=== PATIENT | female | born 1955 | race Caucasian/White ===

== ENCOUNTER 2017-03-21 13:28 | Outpatient (CLI) | payer BC ==
[2017-03-21 13:46] LABS: Basophils % (Auto) 0.8 % (0.0-1.8); Eosinophils % (Auto) 1.1 % (0.0-4.3); Hematocrit 35.8 % (30.3-42.9); Hemoglobin 11.9 gm/dl (10.1-14.3); Mean Corpuscular HGB Conc 33 % (30-34); Mean Corpuscular Hemoglobin 31 pg (28-32); Mean Corpuscular Volume 93 fl (79-97); Platelet Count 297 K/mm3 (140-440); Red Blood Count 3.84 M/mm3 (3.65-5.03); Red Cell Distribution Width 13.3 % (13.2-15.2)
== END 2017-03-21 13:29 | disposition home or self-care (01) ==
LOC: LAB 13:28
PROVIDERS: ATTEND Surgery
DX: D72.829 Elevated white blood cell count, unspecified (principal)
CPT/HCPCS: 36415; 85025

== ENCOUNTER 2017-03-27 07:51 | Outpatient (CLI) | payer BC ==
--- NOTE | 2017-03-27 09:46 | Mammography Report ---
BILATERAL MAMMOGRAM with CAD: HISTORY: Cancer screening. Comparison study is dated March 15, 2016. FINDINGS: The breast tissue is heterogeneously dense, which could obscure detection of small masses (approximately 50%-75% glandular). No mass, distortion, suspicious calcification, or skin change is seen. IMPRESSION: Negative mammogram. There is no mammographic evidence of malignancy. RECOMMENDATION: Follow-up per ACS guidelines. BI-RADS CATEGORY: 1 = Negative ACR BI-RADS MAMMOGRAPHIC CODES: 0 = Needs additional imaging evaluation; 1 = Negative; 2 = Benign; 3 = Probably benign; 4 = Suspicious; 5 = Malignant; 6 = Known biopsy-proven malignancy COMMENT: 1. Dense breast tissue, i.e., adenosis, fibrocystic changes, etc., may obscure an underlying neoplasm. 2. Approximately 10% of cancers are not detected with mammography. 3. A negative mammography report should not delay biopsy if a clinically suspicious mass is present. COMMENT: Patient follow-up letters are generated in [employer].
--- NOTE | 2017-03-27 09:48 | Mammography Report ---
BONE DENSITY STUDY: DEFINITIONS: BMD = Bone Mineral Density T-score = BMD related to mean peak bone mass of young adult (mean expressed in Standard Deviation) Z-score = Age matched BMD expressed in SD World Health Organization (WHO) Diagnostic Criteria Normal T-score > -1 SD Osteopenia T-score between -1 and -2.4 SD Osteoporosis T-score -2.5 SD or below FINDINGS: The weighted average BMD of lumbar spine L1-L4 is 0.910 with a T-score of -1.2. The weighted average BMD of hip is 0.829 with a T-score of -0.9. IMPRESSION: The patient's T-score is diagnostic for osteopenia and average relative risk for fracture. NOTE: BMD is not the only risk factor for fracture; also consider factors such as the patient's age, risk of falling, previous osteoporotic fracture, family history of osteoporotic fractures, current smoker, and low body weight. Bright's triangle is a region of interest in femur, predominantly of trabecular bone. It is not a true anatomic site, and ISCD does not recommend its use clinically.
== END 2017-03-27 07:52 | disposition home or self-care (01) ==
LOC: MAMMO 07:51
PROVIDERS: ATTEND Internal Medicine
DX: Z12.31 Encounter for screening mammogram for malignant neoplasm of breast (principal); M85.88 Other specified disorders of bone density and structure, other site
CPT/HCPCS: 77080; G0202; 77067

== ENCOUNTER 2018-04-23 10:07 | Day surgery (SDC) | payer BC ==
[2018-04-23] MEDS ORDERED: WATER FOR IRRIG STERILE IR ONE (10:38)
[2018-04-23] MEDS ORDERED: WATER FOR IRRIG STERILE ONE (10:38)
[2018-04-23] MEDS: NACL 0.9% 1000 ML 1,000 ML IV SCH ×2 (11:12→14:00)
--- NOTE | 2018-04-23 11:25 | Anesthesia Day of Surgery ---
Anesthesia Day of Surgery - Day of Surgery Patient Examined: Yes Patient H&P Reviewed: Yes Patient is NPO: Yes
--- NOTE | 2018-04-23 11:25 | Anesthesia Consultation ---
Anesthesia Consult and Med Hx Date of service: 04/23/18 - Airway Anesthetic Teeth Evaluation: Caps, Partials (upper/lower) ROM Head & Neck: Adequate Mental/Hyoid Distance: Adequate Mallampati Class: Class II Intubation Access Assessment: Probably Good - Pulmonary Exam CTA: Yes - Cardiac Exam Cardiac Exam: RRR - Pre-Operative Health Status ASA Pre-Surgery Classification: ASA2 - Pre-Anesthesia Comment Pre-Anesthesia Comments: rheumatoid arthiritis - Pulmonary Hx Smoking: Yes - Other Systems Hx Alcohol Use: Yes (2 drinks/day)
[2018-04-23] MEDS ORDERED: XYLOCAINE 1% 20 mL ONE (13:08)
[2018-04-23] MEDS ORDERED: DIPRIVAN 10 MG/ML IV ONE ×2 (13:08)
--- NOTE | 2018-04-23 13:49 | Short Stay Summary ---
Short Stay Documentation Date of service: 04/23/18 - History H&P: obtained from office - Allergies and Medications Current Medications: Allergies Penicillins Allergy (Verified 04/23/18 11:13) Swelling latex Adverse Reaction (Verified 04/23/18 11:13) Itching,SWELLING pentazocine lactate [From Stacey] Adverse Reaction (Verified 04/23/18 11:13) Nausea,VOMITING Active Medications Sodium Chloride (Nacl 0.9% 1000 Ml) 1,000 mls @ 50 mls/hr IV DIRECT MARY Last Admin: 04/23/18 11:12 Dose: 50 mls/hr - Brief post op/procedure progress note Date of procedure: 04/23/18 Pre-op diagnosis: Hx polyps Post-op diagnosis: same (cecal polyp) Procedure: Colonoscopy with hot snare polypectomy Anesthesia: MAC Findings: 1. 7 mm, flat sessile cecal polyp, snared off piecemeal. 2. Otherwise normal colonoscopy, with torsion-induced mucosal damage in cecum. Surgeon: LILIAN SALAZAR Estimated blood loss: minimal Pathology: list (1. Cecal polyp) Specimen disposition: to lab Condition: stable - Disposition Condition at discharge: Good Disposition: DC-01 TO HOME OR SELFCARE Short Stay Discharge Plan Diet: regular, low salt Follow up with: CARL XIE MD [Primary Care Provider] - 7 Days
[2018-04-23 14:16] VITALS: BP 147/89
--- NOTE | 2018-04-23 14:49 | Operative Report ---
PROCEDURE: Colonoscopy with hot snare polypectomy. PREOPERATIVE DIAGNOSIS: History of colon polyps. POSTOPERATIVE DIAGNOSIS: Cecal polyp. SEDATION: MAC by Anesthesia. HISTORY: The patient presents for surveillance colonoscopy with a prior history of colon polyps. Procedure indications, risks, and benefits were explained and consent was obtained. DESCRIPTION OF PROCEDURE: The patient was placed in left lateral decubitus position and sedated. [employer] video colonoscope was passed through the rectum after digital examination and passed with minimal difficulty to the cecum, which was identified by the ileocecal valve and the appendiceal orifice. Scope was then gradually withdrawn with close inspection of the mucosa. FINDINGS: 1. Seven to 8 mm flat cecal polyp -- removed in 2 pieces with snare polypectomy. 2. Torsion-induced mucosal damage noted in the cecum, due to tortuous sigmoid colon. 3. Remainder of visualized colonic mucosa is normal appearing with no evidence of mass lesions, vascular lesions or inflammation. The patient tolerated the procedure well without immediate complications. IMPRESSION: 1. Cecal polyp -- removed with snare polypectomy. 2. Tortuous sigmoid colon with torsion-induced mucosal damage to cecum. 3. Otherwise normal examination. PLAN: 1. Follow up biopsies. 2. Repeat colonoscopy in 5 years. JOB# [id number] HRC/NTS
== END 2018-04-23 10:08 | disposition home or self-care (01) ==
LOC: GIO 10:07
PROVIDERS: ATTEND Internal Medicine Gastroenterology
DX: Z12.11 Encounter for screening for malignant neoplasm of colon (principal); D12.0 Benign neoplasm of cecum; K63.89 Other specified diseases of intestine; M06.9 Rheumatoid arthritis, unspecified; F17.200 Nicotine dependence, unspecified, uncomplicated; Z98.890 Other specified postprocedural states; Z88.0 Allergy status to penicillin; Z91.040 Latex allergy status; Z91.018 Allergy to other foods; Z86.010 Personal history of colon polyps; Z90.710 Acquired absence of both cervix and uterus
CPT/HCPCS: 45385; 88305; J2704; J7030

== ENCOUNTER 2018-05-22 07:07 | Day surgery (SDC) | payer BC ==
[~2018-05-22 07:07] MED LIST: MARCAINE 0.25% INFILTRATI ONE; XYLOCAINE 1% 20 mL ONE
[2018-05-22] MEDS ORDERED: LACTATED RINGERS 1,000 ML IV SCH (08:00)
[2018-05-22] MEDS ORDERED: VERSED IV NR (08:00)
[2018-05-22] MEDS ORDERED: MARCAINE 0.25% INFILTRATI ONE ×2 (08:11)
[2018-05-22] MEDS ORDERED: XYLOCAINE 1% 20 mL INFILTRATI ONE ×2 (08:11)
[2018-05-22] MEDS ORDERED: NACL 0.9% IR ONE (08:11)
[2018-05-22 08:44] VITALS: BP 150/87
--- NOTE | 2018-05-22 08:58 | Operative Report ---
Operative Report Operative Report: Date of Operation: 05/22/18 preOperative diagnosis: Left dorsal forearm lesion postOperative diagnosis: Same as above Procedure performed: Excision of left forearm lesion with complex wound closure Surgeon:Joyce Rascon DO Anesthesia: local Findings: Hyperkeratotic left forearm lesion measuring approximately 1 x 1 cm. Estimated blood loss: <5 mL Specimen: Left forearm lesion, sutures marking #1 short superior, #2 long lateral, #3 single stitch posterior/deep margin Complications: None Disposition: Stable to home Indication: Patient is a 62-year-old female who presented to the office for evaluation of a left forearm lesion. The lesion had been present for many years however recently had started to become pruritic and irritating. There was concern with these new symptoms and therefore the patient was set up for an elective excision. After all risks were discussed and questions answered, consent was signed in the office. Procedure in detail: Patient was identified in the preoperative area, taken back to the minor procedure room, placed on the stretcher in supine position. The left forearm was prepped and draped in usual sterile fashion and a timeout was performed. Local anesthetic, a 50/50 mixture of 0.25 Marcaine and 1% lidocaine, was injected into the skin at the intended incision site. An elliptical incision was made in the skin around the lesion using a 15 blade. Dissection was carried down through the skin using electrocautery. The entire lesion and deep subcutaneous tissue with approximately 1 cm margins was excised. This was marked with sutures marking #1 short superior margin, #2 long lateral margin, #3 single stitch posterior/deep margin and was then passed off the table as a specimen. The wound was then irrigated and hemostasis achieved with electrocautery. Skin flaps were raised in order to close the wound without any tension. Once hemostasis was ensured, the deep dermal layer was closed using interrupted 3-0 Vicryl sutures. The skin was closed with 4-0 Monocryl subcuticular stitch and skin glue. At the end of the case, all sponge, instrument, sharp counts were correct 2. The patient was discharged home in stable condition.
== END 2018-05-22 08:39 | disposition home or self-care (01) ==
LOC: OR 07:07
PROVIDERS: ATTEND Surgery
DX: L57.0 Actinic keratosis (principal); M06.9 Rheumatoid arthritis, unspecified; F17.210 Nicotine dependence, cigarettes, uncomplicated; Z98.891 History of uterine scar from previous surgery; Z90.710 Acquired absence of both cervix and uterus; Z98.890 Other specified postprocedural states
CPT/HCPCS: 88305

== ENCOUNTER 2019-03-24 09:59 | Outpatient (CLI) | payer BC ==
--- NOTE | 2019-03-24 12:18 | Mammography Report ---
BILATERAL DIGITAL SCREENING MAMMOGRAM with CAD: 03/24/19 09:59:00 CLINICAL: Routine screening. COMPARISON:03/27/17 and 03/15/16 FINDINGS: The breasts are heterogeneously dense, which may obscure small masses. A left asymmetry on the CC view requires additional imaging.No architectural distortion or suspicious calcifications.The right breast is negative. IMPRESSION: Left asymmetry requiring further workup. BI-RADS CATEGORY: 0 -- Additional Imaging Evaluation Required RECOMMENDATION: Recall for left lateralmedial and spot compression CC views and left breast ultrasound if needed. COMMENT: 1. Dense breast tissue, i.e., adenosis, fibrocystic changes, etc., may obscure an underlying neoplasm. 2. Approximately 10% of cancers are not detected with mammography. 3. A negative mammography report should not delay biopsy if a clinically suspicious mass is present. COMMENT: Patient follow-up letters are generated via our [employer] application.
== END 2019-03-24 10:00 | disposition home or self-care (01) ==
LOC: MAMMO 09:59
PROVIDERS: ATTEND Internal Medicine
DX: Z12.31 Encounter for screening mammogram for malignant neoplasm of breast (principal)
CPT/HCPCS: 77067

== ENCOUNTER 2019-04-22 08:12 | Outpatient (CLI) | payer BC ==
--- NOTE | 2019-04-22 08:55 | Mammography Report ---
LEFT DIGITAL DIAGNOSTIC MAMMOGRAM : 04/22/19 08:12:00 CLINICAL: Recalled for asymmetry. COMPARISON:03/24/19 screening FINDINGS: Additional left mammographic views were performed and are negative. IMPRESSION: No mammographic evidence of malignancy. BI-RADS CATEGORY: 1 -- Negative RECOMMENDATION: Routine mammographic screening in one year. COMMENT: 1. Dense breast tissue, i.e., adenosis, fibrocystic changes, etc., may obscure an underlying neoplasm. 2. Approximately 10% of cancers are not detected with mammography. 3. A negative mammography report should not delay biopsy if a clinically suspicious mass is present. COMMENT: Patient follow-up letters are generated via our [employer] application.
== END 2019-04-22 08:13 | disposition home or self-care (01) ==
LOC: SPVWC 08:12
PROVIDERS: ATTEND Internal Medicine
DX: R92.2 Inconclusive mammogram (principal); Z90.710 Acquired absence of both cervix and uterus

== ENCOUNTER 2019-07-29 11:55 | Outpatient (CLI) | payer BC ==
[2019-07-29 12:20] LABS: Basophils # (Auto) 0.1 K/mm3 (0.0-0.1); Basophils % (Auto) 0.6 % (0.0-1.8); Eosinophils # (Auto) 0.1 K/mm3 (0.0-0.4); Eosinophils % (Auto) 0.5 % (0.0-4.3); Hematocrit 26.1 % (30.3-42.9); Lymphocytes # (Auto) 2.1 K/mm3 (1.2-5.4); Lymphocytes % (Auto) 21.1 % (13.4-35.0); Mean Corpuscular HGB Conc 35 % (30-34); Mean Corpuscular Volume 95 fl (79-97); Monocytes # (Auto) 0.7 K/mm3 (0.0-0.8); Monocytes % (Auto) 7.2 % (0.0-7.3); Platelet Count 234 K/mm3 (140-440); Red Blood Count 2.76 M/mm3 (3.65-5.03); Red Cell Distribution Width 13.9 % (13.2-15.2)
[2019-07-29 12:49] LABS: Alanine Aminotransferase 32 units/L (7-56); Albumin 4.1 g/dL (3.9-5); BUN/Creatinine Ratio 17; Blood Urea Nitrogen 10 mg/dL (7-17); Calcium 8.5 mg/dL (8.4-10.2); Hemolysis Index 0
== END 2019-07-29 11:56 | disposition home or self-care (01) ==
LOC: LAB 11:55
PROVIDERS: ATTEND Internal Medicine Gastroenterology
DX: K92.1 Melena (principal)
CPT/HCPCS: 36415; 80053; 85025

== ENCOUNTER 2019-08-03 07:24 | Day surgery (SDC) | payer BC ==
[~2019-08-03 07:24] MED LIST changes: -MARCAINE 0.25% INFILTRATI ONE; +SODIUM CHLORIDE 0.9% 1000 ML 1,000 ML IV SCH; -XYLOCAINE 1% 20 mL ONE
--- NOTE | 2019-08-03 07:52 | Anesthesia Consultation ---
Anesthesia Consult and Med Hx Date of service: 08/03/19 - Airway Anesthetic Teeth Evaluation: Partials ROM Head & Neck: Adequate Mental/Hyoid Distance: Adequate Mallampati Class: Class II Intubation Access Assessment: Probably Good - Pre-Operative Health Status Proposed Anesthetic Plan: MAC - Pulmonary Hx Smoking: Yes Hx Asthma: No Hx Respiratory Symptoms: No SOB: No COPD: No Home Oxygen Therapy: No Hx Pneumonia: No Hx Sleep Apnea: No - Cardiovascular System Hx Hypertension: No Hx Coronary Artery Disease: No Hx Heart Attack/AMI: No Hx Angina: No Hx Percutaneous Transluminal Coronary Angioplasty (PTCA): No Hx Cardia Arrhythmia: No Hx Pacemaker: No Hx Internal Defibrillator: No Hx Valvular Heart Disease: No Hx Heart Murmur: No Hx Peripheral Vascular Disease: No - Central Nervous System Hx Neuromuscular Disorder: No Hx Seizures: No CVA: No Hx Back Pain: No Hx Psychiatric Problems: No - Gastrointestinal Hx Ulcer: No Hx Gastroesophageal Reflux Disease: No - Endocrine Hx Renal Disease: No Hx End Stage Renal Disease: No Hx Cirrhosis: No Hx Liver Disease: No Hx Insulin Dependent Diabetes: No Hx Non-Insulin Dependent Diabetes: No Hx Thyroid Disease: No Hx Hypothyroidism: No Hx Hyperthyroidism: No - Hematic Hx Anemia: Yes Hx Sickle Cell Disease: No - Other Systems Hx Alcohol Use: Yes (Almost every day) Hx Substance Use: No Hx Cancer: No Hx Obesity: No
--- NOTE | 2019-08-03 07:53 | Anesthesia Day of Surgery ---
Anesthesia Day of Surgery - Day of Surgery Patient Examined: Yes Patient H&P Reviewed: Yes Patient is NPO: No Beta Blockers: No
[2019-08-03] MEDS ORDERED: LIDOCAINE MPF (2%) 20 MG/1 ML VIAL 5 ML ONE (08:30)
[2019-08-03] MEDS ORDERED: PROPOFOL 200 MG/20 ML VIAL IV ONE (09:14)
[2019-08-03] MEDS ORDERED: WATER FOR IRRIG STERILE 250 ML BOTTLE IR ONE (09:42)
--- NOTE | 2019-08-03 09:42 | Short Stay Summary ---
Short Stay Documentation Date of service: 08/03/19 - History H&P: obtained from office - Allergies and Medications Current Medications: Allergies Penicillins Allergy (Verified 05/20/18 16:01) Swelling latex Adverse Reaction (Verified 05/20/18 16:01) Itching,SWELLING pentazocine lactate [From Stacey] Adverse Reaction (Verified 05/20/18 16:01) Nausea,VOMITING Home Medications Medication Instructions Recorded Confirmed Last Taken Type Ascorbic Acid [Vitamin C] 1,000 mg PO DAILY 05/22/18 08/03/19 08/02/19 History Leflunomide 1 tab PO DAILY 05/22/18 08/02/19 05/21/18 History Multivit/Folic Acid/Vit K1 1 each PO DAILY 05/22/18 08/03/19 08/02/19 History [One-A-Day Women's 50 Plus Tab] [facility]-3 Fatty Acids/Fish Oil [Fish 1 each PO DAILY 05/22/18 08/03/19 08/02/19 History Oil 1,000 mg Softgel] Tumeric Curcumin 1 tab PO DAILY 05/22/18 08/03/19 08/02/19 History Vitamin B Complex Vit C No.4 150 mg PO DAILY 05/22/18 08/03/19 08/02/19 History [Super B Complex] predniSONE [Deltasone] 1 tab PO DAILY 05/22/18 08/03/19 08/02/19 History Gabapentin [Neurontin] 1 tab PO TID 08/02/19 08/03/19 08/02/19 History Omeprazole 40 mg PO DAILY 08/02/19 08/03/19 08/02/19 History Vitamin D3 Complete Caplet 1 tab PO DAILY 08/02/19 08/03/19 08/02/19 History Active Medications Sodium Chloride (Nacl 0.9% 1000 Ml) 1,000 mls @ 50 mls/hr IV DIRECT MARY Last Admin: 08/03/19 08:26 Dose: 50 mls/hr Documented by: - Brief post op/procedure progress note Date of procedure: 08/03/19 Procedure: see dictation Findings: see dictation Pathology: list (biopsies of antrum for h.pylori) Specimen disposition: to lab Condition: stable - Disposition Condition at discharge: Good Disposition: DC-01 TO HOME OR SELFCARE - Discharge Diagnoses (1) Melena Status: Acute (2) Anemia due to blood loss, chronic Status: Acute Short Stay Discharge Plan Activity: other (no driving for 24 hours. stop smoking, no NSAIDS.) Weight Bearing Status: Full Weight Bearing Diet: regular Follow up with: CARL XIE MD [Primary Care Provider] - 7 Days
--- NOTE | 2019-08-03 09:45 | Operative Report ---
Operative Report Operative Report: Date of procedure: 08/03/2019 Procedure: Esophagogastroduodenoscopy with antral biopsies for H. pylori testing Preprocedure diagnosis: Recent melena and anemia consistent with blood loss. Post procedure diagnosis: Pyloric channel ulcer crater Endoscopist: Dr. Corona Anesthesia: Monitored anesthesia care per anesthesia department Medications: Propofol by anesthesia Estimated blood loss: 0 After careful discussion of the nature and purpose of the procedure as well as details the technique risks benefits and alternatives consent was obtained. The patient was placed in the left lateral decubitus position and medicated per anesthesia. The tip of the [employer] EQ 570 video scope was passed per orum under direct vision into the esophagus and advanced into the stomach and descending duodenum. The descending duodenum and the duodenal bulb were symmetrical and normal. There was a 1 cm ulcer crater in the pyloric channel. The scope was withdrawn into the stomach and the stomach then gently insufflated with air. The antrum was normal. Biopsies were taken in the antrum for H. pylori testing. The stomach was further insufflated and the scope was then retroflexed and partially withdrawn. The cardia, fundus, and body of the stomach were within normal limits and easily distensible.The scope was then withdrawn in the forward position. The esophagogastric junction was at 37 cm. The esophageal body was normal throughout. The procedure was was well tolerated and the patient was observed in recovery. Impressions: 1 cm ulcer crater in the pyloric channel consistent with the source of recent bleeding. Plan: Await pathology. Continue PPI therapy. The patient will call the office in 1 week to discuss the findings and further management. Avoidance of NSAIDs. Discontinue tobacco use. Electronically signed: Chau Corona MD
[2019-08-03 10:19] VITALS: BP 117/60
--- NOTE | 2019-08-04 13:19 | Post Anesthesia Evaluation ---
- Post Anesthesia Evaluation Patient Participated: Yes Airway Patent: Yes Stable Respiratory Function: Yes Nausea/Vomiting: No Temp > 96.8F: Yes Pain Manageable: Yes Adequeate Hydration: Yes Anesthesia Complications: No Block Receding Appropriately: Not Applicable Patient on Ventilator: No
== END 2019-08-03 07:25 | disposition home or self-care (01) ==
LOC: GIO 07:24
PROVIDERS: ATTEND Internal Medicine Gastroenterology
DX: D50.0 Iron deficiency anemia secondary to blood loss (chronic) (principal); K29.50 Unspecified chronic gastritis without bleeding; B96.81 Helicobacter pylori [H. pylori] as the cause of diseases classified elsewhere; K92.1 Melena; F17.210 Nicotine dependence, cigarettes, uncomplicated; Z90.710 Acquired absence of both cervix and uterus; Z91.040 Latex allergy status; Z88.0 Allergy status to penicillin; Z88.8 Allergy status to other drugs, medicaments and biological substances; Z79.899 Other long term (current) drug therapy; Z98.891 History of uterine scar from previous surgery; Z96.641 Presence of right artificial hip joint; Z72.89 Other problems related to lifestyle; Z98.890 Other specified postprocedural states
CPT/HCPCS: 43239; 88305; 88342; J2704; J7030

== ENCOUNTER 2019-09-09 13:33 | Outpatient (CLI) | payer BC | END 2019-09-09 13:34 | disposition home or self-care (01) | LOC: LAB 13:33 | PROVIDERS: ATTEND Internal Medicine Gastroenterology | DX: R19.7 Diarrhea, unspecified (principal); Z88.0 Allergy status to penicillin; Z88.8 Allergy status to other drugs, medicaments and biological substances; Z91.040 Latex allergy status | CPT/HCPCS: 87045; 87493 ==

== ENCOUNTER 2019-12-13 12:28 | Outpatient (CLI) | payer BC ==
[2019-12-13 12:48] LABS: Hematocrit 39.3 % (30.3-42.9); Hemoglobin 13.2 gm/dl (10.1-14.3); Mean Corpuscular HGB Conc 34 % (30-34); Mean Corpuscular Volume 93 fl (79-97); Platelet Count 320 K/mm3 (140-440); Red Blood Count 4.22 M/mm3 (3.65-5.03); Red Cell Distribution Width 15.8 % (13.2-15.2)
[2019-12-13 13:24] LABS: % Iron Saturation 20.54 %
== END 2019-12-13 12:29 | disposition home or self-care (01) ==
LOC: XRAY 12:28
PROVIDERS: ATTEND Internal Medicine Gastroenterology
DX: K29.70 Gastritis, unspecified, without bleeding (principal); K25.9 Gastric ulcer, unspecified as acute or chronic, without hemorrhage or perforation; B96.81 Helicobacter pylori [H. pylori] as the cause of diseases classified elsewhere; D64.9 Anemia, unspecified
CPT/HCPCS: 36415; 82607; 82728; 83550; 85027; 87338

== ENCOUNTER 2020-06-27 06:49 | Day surgery (SDC) | payer BC ==
--- NOTE | 2020-06-27 08:48 | Anesthesia Consultation ---
Anesthesia Consult and Med Hx Date of service: 06/27/20 - Airway Anesthetic Teeth Evaluation: Good, Partials ROM Head & Neck: Adequate Mental/Hyoid Distance: Adequate Mallampati Class: Class I - Pulmonary Exam CTA: Yes - Pre-Operative Health Status ASA Pre-Surgery Classification: ASA2 Proposed Anesthetic Plan: MAC - Pulmonary Hx Smoking: Yes Hx Asthma: No Hx Respiratory Symptoms: No SOB: No COPD: No Hx Pneumonia: No Hx Sleep Apnea: No - Cardiovascular System Hx Hypertension: No Hx Coronary Artery Disease: No Hx Heart Attack/AMI: No Hx Angina: No Hx Percutaneous Transluminal Coronary Angioplasty (PTCA): No Hx Cardia Arrhythmia: No Hx Pacemaker: No Hx Internal Defibrillator: No Hx Valvular Heart Disease: No Hx Heart Murmur: No Hx Peripheral Vascular Disease: No - Central Nervous System Hx Neuromuscular Disorder: No Hx Seizures: No CVA: No Hx Back Pain: No Hx Psychiatric Problems: No - Gastrointestinal Hx Ulcer: No Hx Gastroesophageal Reflux Disease: No - Endocrine Hx Renal Disease: No Hx End Stage Renal Disease: No Hx Cirrhosis: No Hx Liver Disease: No Hx Insulin Dependent Diabetes: No Hx Non-Insulin Dependent Diabetes: No Hx Thyroid Disease: No Hx Hypothyroidism: No Hx Hyperthyroidism: No - Hematic Hx Anemia: Yes Hx Sickle Cell Disease: No - Other Systems Hx Alcohol Use: Yes (Almost every day) Hx Substance Use: No Hx Cancer: No Hx Obesity: No - Additional Comments Anesthesia Medical History Comments: Patient denies previous anesthesia complications
--- NOTE | 2020-06-27 08:49 | Anesthesia Day of Surgery ---
Anesthesia Day of Surgery - Day of Surgery Patient Examined: Yes Patient H&P Reviewed: Yes Patient is NPO: Yes Beta Blockers: No Cardiac Clearance: No Pulmonary Clearance: No Ricci's Test: N/A
[2020-06-27] MEDS ORDERED: propofoL 200 MG/20 ML VIAL IV ONE ×2 (08:52)
[2020-06-27] MEDS ORDERED: SODIUM CHLORIDE 0.9% 1000 ML 1,000 ML IV SCH (09:00)
[2020-06-27] MEDS ORDERED: LIDOCAINE MPF (2%) 20 MG/1 ML VIAL 5 ML ONE (09:00)
--- NOTE | 2020-06-27 09:10 | Short Stay Summary ---
Short Stay Documentation Date of service: 06/27/20 - History H&P: obtained from office - Allergies and Medications Current Medications: Allergies Penicillins Allergy (Verified 05/20/18 16:01) Swelling latex Adverse Reaction (Verified 05/20/18 16:01) Itching,SWELLING pentazocine lactate [From Stacey] Adverse Reaction (Verified 05/20/18 16:01) Nausea,VOMITING Home Medications Medication Instructions Recorded Confirmed Last Taken Type Ascorbic Acid [Vitamin C] 1,000 mg PO DAILY 05/22/18 08/03/19 06/24/20 History Leflunomide 1 tab PO DAILY 05/22/18 08/02/19 06/24/20 History Multivit/Folic Acid/Vit K1 1 each PO DAILY 05/22/18 08/03/19 06/24/20 History [One-A-Day Women's 50 Plus Tab] [place]-3 Fatty Acids/Fish Oil [Fish 1 each PO DAILY 05/22/18 08/03/19 06/24/20 History Oil 1,000 mg Softgel] Tumeric Curcumin 1 tab PO DAILY 05/22/18 08/03/19 06/24/20 History Vitamin B Complex Vit C No.4 150 mg PO DAILY 05/22/18 08/03/19 06/24/20 History [Super B Complex] predniSONE [Deltasone] 1 tab PO DAILY 05/22/18 08/03/19 06/24/20 History Gabapentin 1 tab PO TID 08/02/19 08/03/19 06/24/20 History Omeprazole 40 mg PO DAILY 08/02/19 08/03/19 06/24/20 History Vitamin D3 Complete Caplet 1 tab PO DAILY 08/02/19 08/03/19 06/24/20 History Active Medications Sodium Chloride (Nacl 0.9% 1000 Ml) 1,000 mls @ 50 mls/hr IV DIRECT MARY - Brief post op/procedure progress note Date of procedure: 06/27/20 Findings: see dictation Estimated blood loss: none Pathology: none Condition: stable - Disposition Condition at discharge: Good Disposition: DC-01 TO HOME OR SELFCARE - Discharge Diagnoses (1) Family history of colon cancer Status: Acute Short Stay Discharge Plan Activity: other (no driving for 24 hours) Weight Bearing Status: Full Weight Bearing Diet: regular Follow up with: CARL XIE MD [Primary Care Provider] - 7 Days
--- NOTE | 2020-06-27 09:13 | Operative Report ---
Operative Report Operative Report: Date of procedure: 06/27/2020 Preprocedure diagnosis: Strong family history of colon cancer with 3 first-degre e members, two of which were below the age of 60 and one above the age of 60. Post procedure diagnosis: Normal study except for internal hemorrhoids Procedure: Colonoscopy to the cecum Endoscopist: Dr. Corona Anesthesia: Monitored anesthesia care per anesthesia department Estimated blood loss: 0 Medications: Monitored anesthesia care. See separate report by anesthesia for details. After careful discussion of the nature and purpose of the procedure as well as details of the technique risks benefits and alternatives the patient gave consent. Please see recent history and physical from the office. The patient was placed in the left lateral decubitus position and medicated per anesthesia. A rectal exam was performed sphincter tone was normal there were no masses palpable. The [employer] 570 scope was passed transanally and advanced under continuous direct vision without difficulty to the cecum. The colon was well prepared. The cecum was normal. The ascending colon was normal and on forward and retroflexed views. The transverse colon, descending colon, and sigmoid colon were normal. The rectum revealed small internal hemorrhoids but otherwise was normal on forward and retroflexed views. The procedure was well-tolerated overall and the patient was observed in recovery. Conclusions: Internal hemorrhoids, otherwise normal study. Plan: Repeat colonoscopy in 5 years based on family history. Signed electronically: Chau Corona M.D.
[2020-06-27 09:56] VITALS: BP 138/77
== END 2020-06-27 10:20 | disposition home or self-care (01) ==
LOC: GIO 06:49
PROVIDERS: ATTEND Internal Medicine Gastroenterology
DX: Z12.11 Encounter for screening for malignant neoplasm of colon (principal); K64.8 Other hemorrhoids; F17.210 Nicotine dependence, cigarettes, uncomplicated; M19.90 Unspecified osteoarthritis, unspecified site; Z80.0 Family history of malignant neoplasm of digestive organs; Z88.0 Allergy status to penicillin; Z91.040 Latex allergy status; Z79.899 Other long term (current) drug therapy; Z90.710 Acquired absence of both cervix and uterus; Z98.891 History of uterine scar from previous surgery; Z72.89 Other problems related to lifestyle; Z98.890 Other specified postprocedural states; Z87.898 Personal history of other specified conditions; Z86.010 Personal history of colon polyps; Z86.2 Personal history of diseases of the blood and blood-forming organs and certain disorders involving the immune mechanism; Z88.8 Allergy status to other drugs, medicaments and biological substances
CPT/HCPCS: 45378; J2704

== ENCOUNTER 2022-03-29 14:20 | Inpatient (IN) | payer BC, MEDICARE ==
--- NOTE | 2022-03-29 17:20 | Cat Scan Report ---
CT LUMBAR SPINE: 03/29/2022 INDICATION / CLINICAL INFORMATION: fall with pain. COMPARISON: None available. FINDINGS: CT images of the lumbar spine were obtained. Images are evaluated in the axial, coronal, and sagittal planes. There are compression deformities present at the L1 and L3 level. At L3, there is 40-50% compression of the upper endplate, with some linear lucencies suggesting that this is an acute or recent compression fracture. Moderate retropulsion is present associated with mod erately severe canal stenosis. At L1, there is approximately 20-30% compression, which has a more chronic appearance. There is mild left convex scoliosis of the lower lumbar spine. LEVEL BY LEVEL ANALYSIS: L5-S1: This space narrowing and mild diffuse disc bulging. Moderate facet degenerative changes. L4-5: Near complete loss of the disc space is present associated with grade 1 anterolisthesis and und erlying residual disc bulging. Severe canal stenosis is present. L3-4: Moderate diffuse disc bulging and moderate canal narrowing is present. L2-3: Moderate diffuse disc bulging with additional retropulsion due to the above-described compressi on. Moderately severe canal stenosis. L1-2: Unremarkable. PARASPINAL STRUCTURES: Unremarkable. IMPRESSION: 1. 50% compression at L3 with retropulsion and canal stenosis. 2. Chronic appearing 20-30% compression of L1. Multilevel degenerative changes as detailed above. All CT scans at this location are performed using dose reduction to ALARA by means of automated expos ure control. Signer Name: Ricci Yoon MD Signed: 03/29/2022 5:16 PM Workstation Name: [id number]
--- NOTE | 2022-03-29 17:20 | Emergency Department Report ---
ED Fall HPI - General Chief Complaint: Back Pain/Injury Stated Complaint: BACK PAIN/LEG PAIN Time Seen by Provider: 03/29/22 16:06 Source: patient Mode of arrival: Ambulatory - History of Present Illness Initial Comments: 66 yo F who present with lower back pain that started after a fall on Friday when she slid and landed on a coffee table. Pt thought it was going to get isra r and continue to walk on it. Pt says the pain did not get better and turning on any sides worsen pain. No other modifying or associated factors. MD Complaint: fall - Related Data Home Medications Medication Instructions Recorded Confirmed Last Taken Ascorbic Acid [Vitamin C] 1,000 mg PO DAILY 05/22/18 08/03/19 06/24/20 Leflunomide 1 tab PO DAILY 05/22/18 08/02/19 06/24/20 Multivit/Folic Acid/Vit K1 1 each PO DAILY 05/22/18 08/03/19 06/24/20 [One-A-Day Women's 50 Plus Tab] [place]-3 Fatty Acids/Fish Oil [Fish 1 each PO DAILY 05/22/18 08/03/19 06/24/20 Oil 1,000 mg Softgel] Tumeric Curcumin 1 tab PO DAILY 05/22/18 08/03/19 06/24/20 Vitamin B Complex Vit C No.4 150 mg PO DAILY 05/22/18 08/03/19 06/24/20 [Super B Complex] predniSONE [Deltasone] 1 tab PO DAILY 05/22/18 08/03/19 06/24/20 Gabapentin 1 tab PO TID 08/02/19 08/03/19 06/24/20 Omeprazole 40 mg PO DAILY 08/02/19 08/03/19 06/24/20 Vitamin D3 Complete Caplet 1 tab PO DAILY 08/02/19 08/03/19 06/24/20 Allergies Allergy/AdvReac Type Severity Reaction Status Date / Time Penicillins Allergy Swelling Verified 03/29/22 15:51 latex AdvReac Itching,SWE Verified 03/29/22 15:51 LLING pentazocine lactate AdvReac Nausea,VOMI Verified 03/29/22 15:51 [From Marcelo [facility] ED Review of Systems ROS: Stated complaint: BACK PAIN/LEG PAIN Other details as noted in HPI Comment: All other systems reviewed and negative Musculoskeletal: back pain (lower back ) ED Past Medical Hx - Past Medical History Previous Medical History?: Yes Hx Hypertension: No Hx Heart Attack/AMI: No Hx Liver Disease: No Hx Renal Disease: No Hx Sickle Cell Disease: No Hx Arthritis: Yes Hx Seizures: No Hx Asthma: No Hx COPD: No - Surgical History Hx Pacemaker: No Hx Internal Defibrillator: No - Social History Smoking Status: Never Smoker Substance Use Type: None - Medications Home Medications: Home Medications Medication Instructions Recorded Confirmed Last Taken Type Ascorbic Acid [Vitamin C] 1,000 mg PO DAILY 05/22/18 08/03/19 06/24/20 History Leflunomide 1 tab PO DAILY 05/22/18 08/02/19 06/24/20 History Multivit/Folic Acid/Vit K1 1 each PO DAILY 05/22/18 08/03/19 06/24/20 History [One-A-Day Women's 50 Plus Tab] [place]-3 Fatty Acids/Fish Oil [Fish 1 each PO DAILY 05/22/18 08/03/19 06/24/20 History Oil 1,000 mg Softgel] Tumeric Curcumin 1 tab PO DAILY 05/22/18 08/03/19 06/24/20 History Vitamin B Complex Vit C No.4 150 mg PO DAILY 05/22/18 08/03/19 06/24/20 History [Super B Complex] predniSONE [Deltasone] 1 tab PO DAILY 05/22/18 08/03/19 06/24/20 History Gabapentin 1 tab PO TID 08/02/19 08/03/19 06/24/20 History Omeprazole 40 mg PO DAILY 08/02/19 08/03/19 06/24/20 History Vitamin D3 Complete Caplet 1 tab PO DAILY 08/02/19 08/03/19 06/24/20 History ED Physical Exam - General Limitations: Physical Limitation General appearance: alert, in distress (due to pain ) - Head Head exam: Present: atraumatic, normal inspection - Eye Eye exam: Present: normal appearance Pupils: Present: normal accommodation - ENT ENT exam: Present: normal exam, normal orophraynx, mucous membranes moist - Neck Neck exam: Present: normal inspection, full ROM. Absent: tenderness - Respiratory Respiratory exam: Present: normal lung sounds bilaterally. Absent: respiratory distress, accessory muscle use - Cardiovascular Cardiovascular Exam: Present: regular rate, normal rhythm, normal heart sounds - GI/Abdominal GI/Abdominal exam: Present: soft, normal bowel sounds. Absent: distended, tenderness - Extremities Exam Extremities exam: Present: normal inspection, full ROM, normal capillary refill. Absent: tenderness, pedal edema, joint swelling - Back Exam Back exam: Present: normal inspection, tenderness (bilateral paraspinal tenderness and right hip as well) - Neurological Exam Neurological exam: Present: alert, oriented X3 - Psychiatric Psychiatric exam: Present: normal affect, normal mood - Skin Skin exam: Present: warm, normal color ED Course Vital Signs 03/29/22 03/29/22 03/29/22 15:50 15:57 16:01 Temperature 98.1 F Pulse Rate 108 H 84 74 Respiratory 22 13 24 Rate Blood Pressure 174/89 174/89 Blood Pressure 210/99 [Left] O2 Sat by Pulse 99 Oximetry - Reevaluation(s) Reevaluation #1: 03/29/22 17:21 here with lower back pain after a fall-- to rule out spine fracture will go ahead and order CT pelvic and lumbar-- given Morphine + zofran for symptomatic relieve-- 03/29/22 18:01 Dr Rodriguez consulted who suggested admitting patient for pain control to the hospitalist and have himself consulted. Pt will likely be discharge home with brace. - Consultations Consultation #1: 03/29/22 18:03 Dr Rodriguez Consultation #2: 03/29/22 18:03 Dr Valdovinos ED Medical Decision Making - Radiology Data interpreted by me: CT pelvic noted FINDINGS: No pelvic mass, fluid or inflammation. A normal appendix is identified. Status post previous placement of a right hip prosthesis. 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 No acute bony injury is identified. IMPRESSION: 1. No acute abnormality. 2. Advanced DJD left hip. CT Lumbar noted with LEVEL BY LEVEL ANALYSIS: L5-S1: This space narrowing and mild diffuse disc bulging. Moderate facet degenerative changes. L4-5: Near complete loss of the disc space is present associated with grade 1 anterolisthesis and underlying residual disc bulging. Severe canal stenosis is present. L3-4: Moderate diffuse disc bulging and moderate canal narrowing is present. L2-3: Moderate diffuse disc bulging with additional retropulsion due to the above-described compression. Moderately severe canal stenosis. L1-2: Unremarkable. PARASPINAL STRUCTURES: Unremarkable. IMPRESSION: 1. 50% compression at L3 with retropulsion and canal stenosis. 2. Chronic appearing 20-30% compression of L1. Critical care attestation.: If time is entered above; I have spent that time in minutes in the direct care of this critically ill patient, excluding procedure time. ED Disposition Clinical Impression: Fall Qualifiers: Encounter type: initial encounter Qualified Code(s): W19.XXXA - Unspecified fall, initial encounter Lower back pain Qualifiers: Chronicity: acute Back pain laterality: bilateral Sciatica presence: unspecified whether sciatica present Qualified Code(s): M54.50 - Low back pain, unspecified Compression fx, lumbar spine Qualifiers: Encounter type: initial encounter Lumbar vertebra fracture level: L3 Qualified Code(s): S32.030A - Wedge compression fracture of third lumbar vertebra, initial encounter for closed fracture Disposition: 09 ADMITTED INPATIENT Is pt being admited?: Yes Does the pt Need Aspirin: No Condition: Stable Time of Disposition: 18:03
[2022-03-29] MEDS ORDERED: MORPHINE 2 MG/1 ML INJ IV ONE (17:23)
[2022-03-29] MEDS ORDERED: ONDANSETRON 4 MG/2 ML INJ IV ONE (17:23)
--- NOTE | 2022-03-29 17:35 | Cat Scan Report ---
CT pelvis wo con INDICATION: fall with pain. TECHNIQUE: All CT scans at this location are performed using the following dose modulation technique: Automated exposure control. CONTRAST: None. COMPARISON: None available. FINDINGS: No pelvic mass, fluid or inflammation. A normal appendix is identified. Status post previous placement of a right hip prosthesis. 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 No acute bony injury is identified. IMPRESSION: 1. No acute abnormality. 2. Advanced DJD left hip. Signer Name: Kelvin Olivo MD Signed: 03/29/2022 5:30 PM Workstation Name: [id number]
[2022-03-29] MEDS ORDERED: MORPHINE 2 MG/1 ML INJ IV PRN ×2 (18:04→22:26)
[2022-03-29] MEDS ORDERED: ONDANSETRON 4 MG/2 ML INJ IV PRN ×2 (18:04→22:26)
[2022-03-29] MEDS ORDERED: ACETAMINOPHEN 325 MG TAB PO PRN ×2 (18:04→22:26)
[2022-03-29 18:40] LABS: Basophils # (Auto) 0.1 K/mm3 (0.0-0.1); Basophils % (Auto) 0.5 % (0.0-1.8); Eosinophils % (Auto) 0.4 % (0.0-4.3); Hematocrit 38.3 % (30.3-42.9); Hemoglobin 12.7 gm/dl (10.1-14.3); Lymphocytes # (Auto) 1.8 K/mm3 (1.2-5.4); Lymphocytes % (Auto) 13.7 % (13.4-35.0); Mean Corpuscular HGB Conc 33 % (30-34); Mean Corpuscular Volume 101 fl (79-97); Monocytes # (Auto) 1.2 K/mm3 (0.0-0.8); Monocytes % (Auto) 9.3 % (0.0-7.3); Platelet Count 202 K/mm3 (140-440); Red Blood Count 3.81 M/mm3 (3.65-5.03); Red Cell Distribution Width 13.4 % (13.2-15.2)
[2022-03-29 18:46] LABS: INR 0.9 (0.87-1.13)
[2022-03-29 18:47] LABS: Partial Thromboplastin Time 26.9 Sec. (24.2-36.6)
[2022-03-29 19:06] LABS: Alanine Aminotransferase 41 units/L (7-56); Albumin 4.1 g/dL (3.9-5); Blood Urea Nitrogen 12 mg/dL (7-17); Calcium 9.1 mg/dL (8.4-10.2); Hemolysis Index 4
[2022-03-29 19:09] LABS: BUN/Creatinine Ratio 20
--- NOTE | 2022-03-29 22:15 | History and Physical Report ---
History of Present Illness Date of examination: 03/29/22 Date of admission: 03/29/22 18:04 Chief complaint: Severe low back pain for 3 days History of present illness: History of Present Illness 66-year-old female with history of severe arthritis and osteoporosis fell from her chair 3 days ago and landed backwards on a coffee table. Patient was in s evere pain but did not seek medical attention thinking that symptoms will get better. Patient has been managing severe back pain intermittently and sharp in nature with radiation to the right lower extremity. Pain has been getting worse because of which patient came to the emergency room today. Pain is exacerbated by any movement. No movements seem to relieve symptoms. No fever or chills. No dysuria. No urinary or rectal incontinence. - Past Medical History --osteoarthritis --Osteoporosis - Surgical History --Right hip arthroplasty -- x3 --Hysterectomy --Abdominoplasty --Callus removal on the right great toe - Social History --Smoking Status: Never Smoker --Substance Use Type: None -FAMILY history -- Htn Review of Systems ROS: Constitutional no weight loss or weight gain no fever or chills HEENT no sore throat no post nasal drip no diplopia Neck no neck stiffness no lymph gland enlargement Chest and lungs no shortness of breath cough or wheezing CVS no chest pain no diaphoresis no palpitations GI no nausea no vomiting no diarrhea Genitourinary system no dysuria no flank pain Musculoskeletal system severe low back pain with radiation of pain to the right lower extremity [employer] no syncope no seizures Skin no rash no itching Psychiatric no depression no homicidal or suicidal tendencies Hematologic no lymphedema or bruising Endocrine no polydipsia no polyuria no cold intolerance no heat intolerance Medications and Allergies Allergies Allergy/AdvReac Type Severity Reaction Status Date / Time Penicillins Allergy Swelling Verified 03/29/22 15:51 latex AdvReac Itching,SWE Verified 03/29/22 15:51 LLING pentazocine lactate AdvReac Nausea,VOMI Verified 03/29/22 15:51 [From Stacey] TING Home Medications Medication Instructions Recorded Confirmed Last Taken Type Ascorbic Acid [Vitamin C] 1,000 mg PO DAILY 05/22/18 03/30/22 03/28/22 09:00 History Leflunomide 1 tab PO DAILY 05/22/18 03/30/22 03/28/22 09:00 History Multivit/Folic Acid/Vit K1 1 each PO DAILY 05/22/18 03/30/22 03/28/22 09:00 History [One-A-Day Women's 50 Plus Tab] [place]-3 Fatty Acids/Fish Oil [Fish 1 each PO DAILY 05/22/18 03/30/22 03/28/22 20:30 History Oil 1,000 mg Softgel] Tumeric Curcumin 1 tab PO DAILY 05/22/18 03/30/22 03/28/22 09:00 History Vitamin B Complex Vit C No.4 150 mg PO DAILY 05/22/18 03/30/22 03/28/22 09:00 History [Super B Complex] predniSONE [Deltasone] 4 tab PO DAILY 05/22/18 03/30/22 03/28/22 09:00 History Gabapentin 1 tab PO TID 08/02/19 03/30/22 03/28/22 21:00 History Omeprazole 40 mg PO DAILY 08/02/19 03/30/22 03/28/22 10:00 History Vitamin D3 Complete Caplet 1 tab PO DAILY 08/02/19 03/30/22 03/28/22 History Active Meds: Active Medications Acetaminophen (Acetaminophen 325 Mg Tab) 650 mg PO Q4H PRN PRN Reason: Pain MILD(1-3)/Fever >100.5/SAUER Morphine Sulfate (Morphine 2 Mg/1 Ml Inj) 2 mg IV Q4H PRN PRN Reason: Pain, Moderate (4-6) Ondansetron HCl (Ondansetron 4 Mg/2 Ml Inj) 4 mg IV Q8H PRN PRN Reason: Nausea And Vomiting Sodium Chloride (Sodium Chloride 0.9% 10 Ml Flush Syringe) 10 ml IV BID MARY Sodium Chloride (Sodium Chloride 0.9% 10 Ml Flush Syringe) 10 ml IV PRN PRN PRN Reason: LINE FLUSH Exam - Constitutional Vitals: Temp Pulse Resp BP Pulse Ox 99.5 F 84 17 148/67 94 03/29/22 20:45 03/29/22 20:45 03/29/22 20:45 03/29/22 20:45 03/29/22 20:45 General appearance: Present: no acute distress, well-nourished - EENT Eyes: Present: PERRL ENT: hearing intact, clear oral mucosa - Neck Neck: Present: supple, normal ROM - Respiratory Respiratory effort: normal Respiratory: bilateral: CTA - Cardiovascular Heart rate: 78 Rhythm: regular Heart Sounds: Present: S1 & S2. Absent: rub, click - Extremities Extremities: pulses symmetrical, No edema Peripheral Pulses: within normal limits - Abdominal General gastrointestinal: Present: soft, non-tender, non-distended, normal bowel sounds Female genitourinary: Present: normal - Integumentary Integumentary: Present: clear, warm, dry - Musculoskeletal Musculoskeletal: strength equal bilaterally, other (Severe tenderness L3-L4 region, SLR positive on right lower extremity) - Psychiatric Psychiatric: appropriate mood/affect, intact judgment & insight - Neurologic Neurologic: CNII-XII intact, moves all extremities, other (Straight leg raising test on right lower extremity very painful) - Allied Health Allied health notes reviewed: nursing, case management Results - Labs CBC & Chem 7: 03/29/22 17:52 03/29/22 17:52 Labs: Laboratory Last Values WBC 13.4 K/mm3 (4.5-11.0) H 03/29/22 17:52 RBC 3.81 M/mm3 (3.65-5.03) 03/29/22 17:52 Hgb 12.7 gm/dl (10.1-14.3) 03/29/22 17:52 Hct 38.3 % (30.3-42.9) 03/29/22 17:52 MCV 101 fl (79-97) H 03/29/22 17:52 MCH 33 pg (28-32) H 03/29/22 17:52 MCHC 33 % (30-34) 03/29/22 17:52 RDW 13.4 % (13.2-15.2) 03/29/22 17:52 Plt Count 202 K/mm3 (140-440) 03/29/22 17:52 Lymph % (Auto) 13.7 % (13.4-35.0) 03/29/22 17:52 [place] % (Auto) 9.3 % (0.0-7.3) H 03/29/22 17:52 Eos % (Auto) 0.4 % (0.0-4.3) 03/29/22 17:52 Baso % (Auto) 0.5 % (0.0-1.8) 03/29/22 17:52 Lymph # (Auto) 1.8 K/mm3 (1.2-5.4) 03/29/22 17:52 [place] # (Auto) 1.2 K/mm3 (0.0-0.8) H 03/29/22 17:52 Eos # (Auto) 0.0 K/mm3 (0.0-0.4) 03/29/22 17:52 Baso # (Auto) 0.1 K/mm3 (0.0-0.1) 03/29/22 17:52 Seg Neutrophils % 76.1 % (40.0-70.0) H 03/29/22 17:52 Seg Neutrophils # 10.2 K/mm3 (1.8-7.7) H 03/29/22 17:52 PT 13.1 Sec. (12.2-14.9) 03/29/22 17:52 INR 0.90 (0.87-1.13) 03/29/22 17:52 APTT 26.9 Sec. (24.2-36.6) 03/29/22 17:52 Sodium 144 mmol/L (137-145) 03/29/22 17:52 Potassium 3.8 mmol/L (3.6-5.0) 03/29/22 17:52 Chloride 105.7 mmol/L (98-107) 03/29/22 17:52 Carbon Dioxide 25 mmol/L (22-30) 03/29/22 17:52 Anion Gap 17 mmol/L 03/29/22 17:52 BUN 12 mg/dL (7-17) 03/29/22 17:52 Creatinine 0.6 mg/dL (0.6-1.2) 03/29/22 17:52 Estimated GFR > 60 ml/min 03/29/22 17:52 BUN/Creatinine Ratio 20 % 03/29/22 17:52 Glucose 83 mg/dL (65-100) 03/29/22 17:52 Calcium 9.1 mg/dL (8.4-10.2) 03/29/22 17:52 Total Bilirubin 0.60 mg/dL (0.1-1.2) 03/29/22 17:52 AST 37 units/L (5-40) 03/29/22 17:52 ALT 41 units/L (7-56) 03/29/22 17:52 Alkaline Phosphatase 91 units/L (35-129) 03/29/22 17:52 Total Protein 6.6 g/dL (6.3-8.2) 03/29/22 17:52 Albumin 4.1 g/dL (3.9-5) 03/29/22 17:52 Albumin/Globulin Ratio 1.6 % 03/29/22 17:52 - Imaging and Cardiology Imaging and Cardiology: Lumbar spine CT At L3 there is 40 to 50% compression of the upper endplate with some linear lucency suggesting that this is an acute or recent compression fracture. Moderate retropulsion is present associated with moderately severe canal stenosis. At L1 there is approximately 20 to 30% compression which is more chronic appearance. There is mild left convex scoliosis of the lower lumbar spine. Level by level analysis L1-L2 unremarkable L2-L3 moderate diffuse disc bulging with radiation retropulsion due to the above described compression moderately severe canal stenosis L3-L4 moderate diffuse disc bulging and moderate canal narrowing is present L4-L5 near complete loss of the disc spaces present associated with grade 1 anterior listhesis and underlying residual disc bulging. Severe canal stenosis is present. L5-S1 there is disc space narrowing and mild diffuse disc bulging. Moderate facet degenerative changes present. Assessment and Plan Advance Directives: Yes (Full code) VTE prophylaxis?: Chemical Plan of care discussed with patient/family: Yes - Patient Problems (1) Compression fx, lumbar spine Current Visit: Yes Status: Acute Qualifiers: Encounter type: initial encounter Lumbar vertebra fracture level: L3 Qualified Code(s): S32.030A - Wedge compression fracture of third lumbar vertebra, initial encounter for closed fracture Plan to address problem: Compression fracture of L3 with spinal stenosis Discussed with Dr. Michael Rodriguez to see the patient and to apply back brace. Referral to neurosurgery---Dr Trinh (2) Osteoarthritis Current Visit: Yes Status: Chronic Qualifiers: Osteoarthritis location: unspecified site Plan to address problem: Patient has severe generalized osteoarthritis involving both hands and knees and hips On NSAIDS (3) Osteoporosis Current Visit: Yes Status: Chronic Qualifiers: Osteoporosis type: age-related Presence of current pathological fracture: with current pathological fracture Encounter type: initial encounter Qualified Code(s): M80.00XA - Age-related osteoporosis with current pathological fracture, unspecified site, initial encounter for fracture Plan to address problem: Caltrate D bid and Fosamax (4) DVT prophylaxis Current Visit: Yes Status: Acute Plan to address problem: On anticoagulation GI prophylaxis (5) Advance care planning Current Visit: Yes Status: Acute Plan to address problem: Disease education conducted, care plan discussed, diagnosis discussed, prognosis patient is full code. Patient acknowledged understanding and agreement with care plan. +30 minutes
[2022-03-29] MEDS ORDERED: METOCLOPRAMIDE 10 MG/2 ML INJ IV PRN (22:26)
[2022-03-29] MEDS ORDERED: HYDROmorphone 1 MG/1 ML INJ IV PRN (22:34)
[2022-03-29] MEDS: SODIUM CHLORIDE 0.9% 1000 ML 1,000 ML IV SCH (23:26)
[2022-03-30 08:08] LABS: Basophils # (Auto) 0.1 K/mm3 (0.0-0.1); Basophils % (Auto) 0.6 % (0.0-1.8); Eosinophils # (Auto) 0.1 K/mm3 (0.0-0.4); Eosinophils % (Auto) 0.8 % (0.0-4.3); Hematocrit 36.7 % (30.3-42.9); Lymphocytes # (Auto) 1.5 K/mm3 (1.2-5.4); Lymphocytes % (Auto) 13.6 % (13.4-35.0); Mean Corpuscular HGB Conc 33 % (30-34); Mean Corpuscular Volume 102 fl (79-97); Monocytes # (Auto) 0.9 K/mm3 (0.0-0.8); Monocytes % (Auto) 8.3 % (0.0-7.3); Platelet Count 196 K/mm3 (140-440); Red Cell Distribution Width 13.4 % (13.2-15.2)
[2022-03-30 08:17] LABS: Alanine Aminotransferase 30 units/L (7-56); Albumin 3.5 g/dL (3.9-5); Blood Urea Nitrogen 11 mg/dL (7-17); Calcium 8.5 mg/dL (8.4-10.2); Hemolysis Index 7
[2022-03-30 08:19] LABS: BUN/Creatinine Ratio 18
[2022-03-30] MEDS: FAMOTIDINE 20 MG/2 ML INJ IV SCH ×3 (08:33→21:46)
--- NOTE | 2022-03-30 10:52 | Progress Note ---
Assessment and Plan Assessment and plan: #L3 compression fracture-acute -compression fracture of L3 with spinal stenosis seen on CT of lumbar -MRI of lumbar spine w/o contrast ordered -Discussed with Dr. Rodriguez & Dr. Horace Sandhu (Neurosurgery) -awaiting placement of back brace -f/u with Dr. Trinh in clinic for further management #Osteoarthritis-chronic -continue home medications as prescribed #Osteoporosis -continue leflunamide #Advanced care planning -Disease education conducted, care plan discussed, diagnosis discussed, prognosis patient is full code. Patient acknowledged understanding and agreement with care plan. +30 minutes History Interval history: No acute events overnight. Patient reports increased mobility with pain control. Currently only experiencing 3 out of 10 pain with certain movements. Currently has no numbness tingling in legs loss of bowel or urinary function. Hospitalist Physical - Physical exam Narrative exam: GENERAL: Well-developed well-nourished. In no acute distress. HEENT: Normocephalic. Atraumatic. NECK: Supple. CHEST/LUNGS: CTAB on room air HEART/CARDIOVASCULAR: RRR. No murmur, rubs or gallops appreciated. ABDOMEN: +BS. NT/ND. SKIN: No rashes noted. NEURO: No focal motor deficit. Follows all commands and is ambulatory. EXTREMITIES: R hand swollen at joints with limited movement. No other cyanosis, clubbing or edema noted PSYCH: Cooperative. - Constitutional Vitals: Temp Pulse Resp BP Pulse Ox 98.6 F 70 18 151/73 98 03/30/22 08:11 03/30/22 08:11 03/30/22 08:11 03/30/22 08:11 03/30/22 08:26 General appearance: Present: no acute distress, well-nourished Results - Labs CBC & Chem 7: 03/30/22 07:43 03/30/22 07:43 Labs: Laboratory Last Values WBC 11.4 K/mm3 (4.5-11.0) H 03/30/22 07:43 RBC 3.60 M/mm3 (3.65-5.03) L 03/30/22 07:43 Hgb 12.0 gm/dl (10.1-14.3) 03/30/22 07:43 Hct 36.7 % (30.3-42.9) 03/30/22 07:43 MCV 102 fl (79-97) H 03/30/22 07:43 MCH 33 pg (28-32) H 03/30/22 07:43 MCHC 33 % (30-34) 03/30/22 07:43 RDW 13.4 % (13.2-15.2) 03/30/22 07:43 Plt Count 196 K/mm3 (140-440) 03/30/22 07:43 Lymph % (Auto) 13.6 % (13.4-35.0) 03/30/22 07:43 R[place] % (Auto) 8.3 % (0.0-7.3) H 03/30/22 07:43 Eos % (Auto) 0.8 % (0.0-4.3) 03/30/22 07:43 Baso % (Auto) 0.6 % (0.0-1.8) 03/30/22 07:43 Lymph # (Auto) 1.5 K/mm3 (1.2-5.4) 03/30/22 07:43 Rains # (Auto) 0.9 K/mm3 (0.0-0.8) H 03/30/22 07:43 Eos # (Auto) 0.1 K/mm3 (0.0-0.4) 03/30/22 07:43 Baso # (Auto) 0.1 K/mm3 (0.0-0.1) 03/30/22 07:43 Seg Neutrophils % 76.7 % (40.0-70.0) H 03/30/22 07:43 Seg Neutrophils # 8.7 K/mm3 (1.8-7.7) H 03/30/22 07:43 PT 13.1 Sec. (12.2-14.9) 03/29/22 17:52 INR 0.90 (0.87-1.13) 03/29/22 17:52 APTT 26.9 Sec. (24.2-36.6) 03/29/22 17:52 Sodium 141 mmol/L (137-145) 03/30/22 07:43 Potassium 3.7 mmol/L (3.6-5.0) 03/30/22 07:43 Chloride 108.5 mmol/L (98-107) H 03/30/22 07:43 Carbon Dioxide 24 mmol/L (22-30) 03/30/22 07:43 Anion Gap 12 mmol/L 03/30/22 07:43 BUN 11 mg/dL (7-17) 03/30/22 07:43 Creatinine 0.6 mg/dL (0.6-1.2) 03/30/22 07:43 Estimated GFR > 60 ml/min 03/30/22 07:43 BUN/Creatinine Ratio 18 % 03/30/22 07:43 Glucose 84 mg/dL (65-100) 03/30/22 07:43 Calcium 8.5 mg/dL (8.4-10.2) 03/30/22 07:43 Total Bilirubin 0.70 mg/dL (0.1-1.2) 03/30/22 07:43 AST 27 units/L (5-40) 03/30/22 07:43 ALT 30 units/L (7-56) 03/30/22 07:43 Alkaline Phosphatase 74 units/L (35-129) 03/30/22 07:43 Total Protein 6.3 g/dL (6.3-8.2) 03/30/22 07:43 Albumin 3.5 g/dL (3.9-5) L 03/30/22 07:43 Albumin/Globulin Ratio 1.3 % 03/30/22 07:43 H[place]/IV: Voiding Method Bedside Commode Active Medications - Current Medications Current Medications: Generic Name Dose Route Start Last Admin Trade Name Freq PRN Reason Stop Dose Admin Acetaminophen 650 mg 03/29/22 22:26 03/30/22 05:08 Acetaminophen 325 Mg Tab PO 650 mg Q4H PRN Administration Pain MILD(1-3)/Fever >100.5/SAUER Famotidine 20 mg 03/30/22 10:00 03/30/22 08:33 Famotidine 20 Mg/2 Ml Inj IV 20 mg BID MARY Administration Gabapentin mg 03/30/22 14:00 Gabapentin 300 Mg Cap PO TID MARY Hydromorphone HCl 1 mg 03/29/22 22:34 Hydromorphone 1 Mg/1 Ml Inj IV Q3H PRN Pain , Severe (7-10) Sodium Chloride 1,000 mls @ 75 mls/hr 03/29/22 22:30 03/29/22 23:26 Nacl 0.9% 1000 Ml IV 75 mls/hr DIRECT MARY Administration Metoclopramide HCl 10 mg 03/29/22 22:26 Metoclopramide 10 Mg/2 Ml Inj IV Q6H PRN Nausea And Vomiting Miscellaneous Medication 1 tab 03/30/22 11:00 Leflunomide [Leflunomide] PO DAILY [facility] Morphine Sulfate 2 mg 03/29/22 22:26 03/29/22 23:18 Morphine 2 Mg/1 Ml Inj IV 2 mg Q4H PRN Administration Pain, Moderate (4-6) Ondansetron HCl 4 mg 03/29/22 22:26 Ondansetron 4 Mg/2 Ml Inj IV Q3H PRN Nausea And Vomiting Oxycodone/Acetaminophen 1 tab 03/29/22 22:26 Oxycodone /Acetaminophen 5-325mg Tab PO Q6H PRN Pain, Moderate (4-6) Sodium Chloride 10 ml 03/30/22 10:00 Sodium Chloride 0.9% 10 Ml Flush Syringe IV BID MARY Sodium Chloride 10 ml 03/29/22 22:26 Sodium Chloride 0.9% 10 Ml Flush Syringe IV PRN PRN LINE FLUSH
--- NOTE | 2022-03-30 10:57 | Consultation ---
History of Present Illness - [facility] Consult date: 03/30/22 Consult reason: low back pain History of present illness: 66 y/o female well known to me, came to our ED c/o low back pain after slip/fall injury couple of days prior... Medications and Allergies Allergies Allergy/AdvReac Type Severity Reaction Status Date / Time Penicillins Allergy Swelling Verified 03/29/22 15:51 latex AdvReac Itching,SWE Verified 03/29/22 15:51 LLING pentazocine lactate AdvReac Nausea,VOMI Verified 03/29/22 15:51 [From Stacey] TING Home Medications Medication Instructions Recorded Confirmed Last Taken Type Ascorbic Acid [Vitamin C] 1,000 mg PO DAILY 05/22/18 03/30/22 03/28/22 09:00 History Leflunomide 1 tab PO DAILY 05/22/18 03/30/22 03/28/22 09:00 History Multivit/Folic Acid/Vit K1 1 each PO DAILY 05/22/18 03/30/22 03/28/22 09:00 History [One-A-Day Women's 50 Plus Tab] [place]-3 Fatty Acids/Fish Oil [Fish 1 each PO DAILY 05/22/18 03/30/22 03/28/22 20:30 History Oil 1,000 mg Softgel] Tumeric Curcumin 1 tab PO DAILY 05/22/18 03/30/22 03/28/22 09:00 History Vitamin B Complex Vit C No.4 150 mg PO DAILY 05/22/18 03/30/22 03/28/22 09:00 History [Super B Complex] predniSONE [Deltasone] 4 tab PO DAILY 05/22/18 03/30/22 03/28/22 09:00 History Gabapentin 1 tab PO TID 08/02/19 03/30/22 03/28/22 21:00 History Omeprazole 40 mg PO DAILY 08/02/19 03/30/22 03/28/22 10:00 History Vitamin D3 Complete Caplet 1 tab PO DAILY 08/02/19 03/30/22 03/28/22 History Active Meds: Active Medications Acetaminophen (Acetaminophen 325 Mg Tab) 650 mg PO Q4H PRN PRN Reason: Pain MILD(1-3)/Fever >100.5/SAUER Last Admin: 03/30/22 05:08 Dose: 650 mg Famotidine (Famotidine 20 Mg/2 Ml Inj) 20 mg IV BID [facility] Last Admin: 03/30/22 08:33 Dose: 20 mg Gabapentin (Gabapentin 300 Mg Cap) mg PO TID [facility] Hydromorphone HCl (Hydromorphone 1 Mg/1 Ml Inj) 1 mg IV Q3H PRN PRN Reason: Pain , Severe (7-10) Sodium Chloride (Nacl 0.9% 1000 Ml) 1,000 mls @ 75 mls/hr IV DIRECT MARY Last Admin: 03/29/22 23:26 Dose: 75 mls/hr Metoclopramide HCl (Metoclopramide 10 Mg/2 Ml Inj) 10 mg IV Q6H PRN PRN Reason: Nausea And Vomiting Miscellaneous Medication (Leflunomide [Leflunomide]) 1 tab PO DAILY [facility] Morphine Sulfate (Morphine 2 Mg/1 Ml Inj) 2 mg IV Q4H PRN PRN Reason: Pain, Moderate (4-6) Last Admin: 03/29/22 23:18 Dose: 2 mg Ondansetron HCl (Ondansetron 4 Mg/2 Ml Inj) 4 mg IV Q3H PRN PRN Reason: Nausea And Vomiting Oxycodone/Acetaminophen (Oxycodone /Acetaminophen 5-325mg Tab) 1 tab PO Q6H PRN PRN Reason: Pain, Moderate (4-6) Prednisone (Prednisone 20 Mg Tab) 20 mg PO QDAY [facility] Sodium Chloride (Sodium Chloride 0.9% 10 Ml Flush Syringe) 10 ml IV BID [facility] Sodium Chloride (Sodium Chloride 0.9% 10 Ml Flush Syringe) 10 ml IV PRN PRN PRN Reason: LINE FLUSH Physical Examination - Physical exam Narrative exam: Lumbar spine - tender across paraspinal muscles, neg SLR, DTR's equal STR 4/5 CT scan L-spine reviewed by me and show chronic changes throughtout ? L3 compression fx vs subacute changes... Assessment and Plan Low back pain ? L3 compression fx Back brace, PT for gait training....
[2022-03-30] MEDS ORDERED: LEFLUNOMIDE 20 MG PO SCH (11:00)
[2022-03-30] MEDS: predniSONE 20 MG TAB PO SCH (12:37)
[2022-03-30] MEDS: GABAPENTIN 300 MG CAP PO SCH ×3 (12:38→21:46)
[2022-03-30] MEDS: oxyCODONE /ACETAMINOPHEN 5-325MG TAB PO PRN (12:40)
[2022-03-31] MEDS: SODIUM CHLORIDE 0.9% 1000 ML 1,000 ML IV SCH (02:23)
[2022-03-31] MEDS: FAMOTIDINE 20 MG/2 ML INJ IV SCH ×2 (08:27→10:00)
[2022-03-31] MEDS: GABAPENTIN 300 MG CAP PO SCH (08:27)
[2022-03-31] MEDS: predniSONE 20 MG TAB PO SCH ×2 (08:27→10:00)
[2022-03-31] MEDS: oxyCODONE /ACETAMINOPHEN 5-325MG TAB PO PRN (08:27)
--- NOTE | 2022-03-31 11:44 | Discharge Summary ---
Providers - Providers Date of Admission: 03/29/22 18:04 Date of discharge: 03/31/22 Attending physician: JOSELUIS PAIGE MD 03/29/22 Consult to Case Management [CONS] Routine Services Needed at Discharge: Home Health Services Physical Therapy Notified:: case liner 03/29/22 18:06 Consult to Physician [CONS] Stat Comment: Consulting Provider: KRISHAN RODRIGUEZ Physician Instructions: Reason For Exam: L 3 compression fracture 03/30/22 06:45 Consult to Physician [CONS] Routine Comment: Consulting Provider: COBY ZHENG II Physician Instructions: Reason For Exam: L3 compression fracture 03/31/22 07:54 Physical Therapy Evaluation and Treat [CONS] Routine Comment: Reason For Exam: gait assessment Primary care physician: [employer] Hospitalization Reason for admission: L3 compression fracture Condition: Stable Hospital course: 66-year-old female with history of severe arthritis and osteoporosis who fell 3 days prior and presented to the emergency department due to excruciating back pain. CT of the lumbar spine showed a 50% compression fracture at L3. Neurosurgery and orthopedic surgery were consulted. Patient was fitted for a back brace and her pain controlled. Once stable she was discharged home with instruction to follow-up with Neurosurgery. Disposition: 01 HOME / SELF CARE / HOMELESS Final Discharge Diagnosis (Prints w/discharge instructions): L3 compression fracture, acute. Osteoarthritis. Osteoporosis Time spent for discharge: 35 minutes Core Measure Documentation - Palliative Care Palliative Care/ Comfort Measures: Not Applicable - Core Measures Any of the following diagnoses?: none Exam - Physical Exam Narrative exam: GENERAL: Well-developed well-nourished. In no acute distress. CHEST/LUNGS: CTAB on room air HEART/CARDIOVASCULAR: RRR. No murmur, rubs or gallops appreciated. ABDOMEN: +BS. NT/ND. SKIN: No rashes noted. NEURO: No focal motor deficit. Follows all commands and is ambulatory. EXTREMITIES: R hand swollen at joints with limited movement. No other cyanosis, clubbing or edema noted PSYCH: Cooperative. - Constitutional Vitals: Temp Pulse Resp BP Pulse Ox 98.7 F 66 18 157/82 98 03/31/22 07:40 03/31/22 07:40 03/31/22 07:40 03/31/22 07:40 03/31/22 08:32 Plan Care Plan Goals: Please schedule appointment with Dr. Zheng, the neurosurgeon within the next 2 weeks. Please follow-up with Dr. Rodriguez as needed. Follow up with: PRIMARY CAREMD [Primary Care Provider] - 7 Days COBY ZHENG II, MD [Staff Physician] - 7 Days Prescriptions: oxyCODONE /ACETAMINOPHEN [Percocet 5/325 mg] 1 tab PO Q8H PRN 30 Days #90 tablet PRN Reason: Pain, Moderate (4-6)
[2022-03-31 12:26] VITALS: BP 166/77
== END 2022-03-31 14:16 | disposition home health service (06) | DRG 544 ==
LOC: ED 14:20 → 4A 18:04
PROVIDERS: ADMIT Internal Medicine; ATTEND Student in an Organized Health Care Education/Training Program
DX: M48.56XA Collapsed vertebra, not elsewhere classified, lumbar region, initial encounter for fracture (principal); M81.0 Age-related osteoporosis without current pathological fracture; Z96.641 Presence of right artificial hip joint; M17.0 Bilateral primary osteoarthritis of knee; M48.061 Spinal stenosis, lumbar region without neurogenic claudication; M16.0 Bilateral primary osteoarthritis of hip; M19.042 Primary osteoarthritis, left hand; M19.041 Primary osteoarthritis, right hand; Z88.0 Allergy status to penicillin; Z88.8 Allergy status to other drugs, medicaments and biological substances; Z91.040 Latex allergy status; Z90.710 Acquired absence of both cervix and uterus; Y93.89 Activity, other specified; Y92.89 Other specified places as the place of occurrence of the external cause; Y99.8 Other external cause status; W07.XXXA Fall from chair, initial encounter
CPT/HCPCS: 36415; 72131; 72192; 80053; 85025; 85610; 85730; G0378; J3490; J1170; J2270; J2405; J7030

== ENCOUNTER 2022-05-16 08:48 | Outpatient (CLI) | payer MEDICARE ==
--- NOTE | 2022-05-16 10:43 | XRay Report ---
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 Loss of vertebral body he ight at L3 remains grossly stable from 04/05/2022. Slight loss of vertebral body height at L1 is also unchanged. Mild atherosclerotic disease of the abdominal aorta is noted. Signer Name: Sebas Hogan MD Signed: 05/16/2022 10:38 AM Workstation Name: [id number]
== END 2022-05-16 08:49 | disposition home or self-care (01) ==
LOC: XRAY 08:48
PROVIDERS: ATTEND Psychiatry & Neurology Neurology
DX: M54.50 Low back pain, unspecified (principal); I71.4 Abdominal aortic aneurysm, without rupture; Z98.890 Other specified postprocedural states
CPT/HCPCS: 72100